=== PATIENT | male | born 1980 | race Hispanic/Latino ===

== ENCOUNTER 2019-12-22 09:06 | Outpatient (CLI) | payer BC ==
--- NOTE | 2019-12-22 09:45 | ULT ---
EXAM: US Gallbladder RUQ CLINICAL HISTORY: Elevated liver function test. COMPARISON: None. FINDINGS: Pancreas: Head and proximal body of the pancreas have a normal echotexture Liver:Hepatic parenchyma has heterogeneous echotexture which may be due to hepatic steatosis or hepat ocellular disease. Limited evaluation for hepatic masses or intrahepatic biliary dilatation. Right hepatic lobe: 16.6 cm Gallbladder: No sonographic evidence of cholelithiasis, gallbladder wall thickening or pericholecysti c fluid. Cervantes's sign:Negative Portal Vein: Patent. Appropriate directional flow Bile ducts: Suboptimal evaluation the common bile duct. Right kidney: No hydronephrosis. Right kidney measures 5.7 x 5.0 x 9.7 cm in length. IMPRESSION: 1. Heterogeneous hepatic parenchymal echotexture due to hepatic steatosis or hepatocellular disease.
== END 2019-12-22 09:07 | disposition home or self-care (01) ==
LOC: BICULT 09:06
PROVIDERS: ATTEND Physician Assistant
DX: R79.89 Other specified abnormal findings of blood chemistry (principal); R93.2 Abnormal findings on diagnostic imaging of liver and biliary tract
CPT/HCPCS: 36415; 76705; 80074; 82977; 85025

== ENCOUNTER 2021-06-13 07:56 | Outpatient (CLI) | payer BC ==
[2021-06-13] MEDS ORDERED: Iopamidol 370 76% 100 ML VIAL ONE (09:59)
== END 2021-06-13 07:57 | disposition home or self-care (01) ==
LOC: CT 07:56
PROVIDERS: ATTEND Physician Assistant Medical
DX: K76.0 Fatty (change of) liver, not elsewhere classified (principal); R10.11 Right upper quadrant pain; K21.9 Gastro-esophageal reflux disease without esophagitis; K92.1 Melena; N28.89 Other specified disorders of kidney and ureter
CPT/HCPCS: 74160